=== PATIENT | female | born 1990 | race Caucasian/White ===

== ENCOUNTER 2019-08-27 14:39 | Outpatient (CLI) | payer OTHER ==
--- NOTE | 2019-08-27 15:38 | ULT ---
LIMITED RIGHT BREAST ULTRASOUND: 08/27/19 PROVIDED CLINICAL HISTORY: Palpable abnormality. FINDINGS: Limited sonographic interrogation was performed of the right breast from the 10 to 12 o'clock positio ns in the region of palpable concern. Simple appearing cysts are seen. No concerning sonographic find ings are evident. IMPRESSION: Cysts are seen in the region of palpable concern without concerning sonographic finding. A negative o r benign imaging findings should not preclude further evaluation of the clinically suspicious area. T he patient is referred back to her clinician. POS: OFF
== END 2019-08-27 14:40 | disposition home or self-care (01) ==
LOC: BICULT 14:39
PROVIDERS: ATTEND Obstetrics & Gynecology
DX: N63.10 Unspecified lump in the right breast, unspecified quadrant (principal)